=== PATIENT | female | born 1980 | race Caucasian/White ===

== ENCOUNTER 2022-02-08 17:36 | Observation (INO) | payer MEDICAID ==
[~2022-02-08] VITALS: Ht 165.1 cm; Wt 107.0 kg
== END 2022-02-08 22:30 | disposition home or self-care (01) ==
LOC: 8 EST LDRP 17:36
PROVIDERS: ADMIT Obstetrics & Gynecology; ATTEND Obstetrics & Gynecology
DX: O36.8130 Decreased fetal movements, third trimester, not applicable or unspecified (principal); O62.9 Abnormality of forces of labor, unspecified; O26.893 Other specified pregnancy related conditions, third trimester; R05.9 Cough, unspecified; R10.9 Unspecified abdominal pain; O12.03 Gestational edema, third trimester; Z3A.37 37 weeks gestation of pregnancy
CPT/HCPCS: 59025; 76805; 76818; G0378; 99281